=== PATIENT | male | born 1990 | race Caucasian/White ===

== ENCOUNTER 2016-10-05 11:22 | Day surgery (SDC) | payer SELFPAY ==
[~2016-10-05] VITALS: Ht 177.8 cm; Wt 78.1 kg
--- NOTE | 2016-10-12 13:48 | OR ---
ADMIT: 10/05/2016 RM/LOC: [facility] MR#: [id number] [address] [address] [place] [address] Operative/Delivery Room Report SEX: M AGE: 26 : 1990 SURGERY DATE: 10/05/2016 SURGEON: Ari Gaytan MD PREOPERATIVE DIAGNOSIS: Left knee internal derangement. POSTOPERATIVE DIAGNOSIS: Left knee lateral meniscus tear. PROCEDURE PERFORMED: Left knee arthroscopy, partial lateral meniscectomy. ANESTHESIA: General. ESTIMATED BLOOD LOSS: Minimal. FLUIDS: Per anesthetic record. COMPLICATIONS: No complications. DRAINS: None. TOURNIQUET TIME: None. CONDITION ON DISCHARGE: The patient returned to the recovery room in fair condition. INDICATIONS: The patient had a left knee injury with pain, catching, and locking. He had a positive MRI scan due to pain, desired knee scope. He understood the risks and benefits of the procedure and desired to proceed. DESCRIPTION OF PROCEDURE: The patient was taken to the OR, transferred to the OR table in the supine position. All bony prominences were well padded. He underwent general anesthesia. The left lower extremity was prepped and draped in the usual sterile fashion. Inferolateral portal made with #11 blade. Arthroscope was then elevated and inserted into the patellofemoral joint. The articular cartilage is normal. Medial and lateral gutters were clear. Medial ADMIT: 10/05/2016 RM/LOC: [facility] MR#: [id number] [id number] S[address]ON [address] [place] [address] Operative/Delivery Room Report SEX: M AGE: 26 : 1990 compartment is entered, inferomedial portal made under direct visualization with #11 blade, hooked placed through this portal. The medial compartment is normal. ACL was intact and the notch. Lateral compartment was entered. There was a large anterior horn of the lateral meniscus tear with the free parrot-beak that was flipped into the joint. The posterior horn was actually intact. I used a shaver and resected the anterior horn of the lateral meniscus tear down to stable meniscal tissue. Once this was done, arthroscopic equipment was removed from the knee. The portals were closed using 3-0 nylon. The wounds were washed, dried, dressed with sterile 4x4s, ABD, and Surendra wrap. The patient was reversed from general anesthesia, transferred to the hospital bed, and taken back to recovery room in fair condition. Air Gaytan MD/ divine JOB #: [id number] CC: Ari Gaytan, Attending Physician FAMILY PHYSICIAN, Family Physician
--- NOTE | 2016-10-12 13:48 | HP ---
ADMIT: 10/05/2016 RM/LOC: [facility] MR#: [id number] [id number] SIVA O[address]ON Shadi [address] [place] [address] Pre-OP History and Physical SEX: M AGE: 26 : 1990 Corrected: 10/05/2016 1027 pauly DATE OF SERVICE: CHIEF COMPLAINT: Left knee pain. HISTORY OF PRESENT ILLNESS: The patient is a 26-year-old white male, injured his left knee playing volleyball. He had an MRI scan positive for internal derangement. He desired surgical intervention. PAST MEDICAL HISTORY: Significant for tonsillectomy and rotator cuff repair. ALLERGIES: NO ALLERGIES. MEDICATIONS: No medications. SOCIAL HISTORY: The patient does chew tobacco. Does not regularly drink alcohol. PHYSICAL EXAMINATION: HEENT: Normocephalic and atraumatic. CARDIOVASCULAR: Regular rate and rhythm. LUNGS: Benign. ABDOMEN: Benign. NEUROLOGIC: Awake and oriented x3. MUSCULOSKELETAL: Exam shows the patient has synovial thickening in his knee. Full extension, 130 degrees of flexion. Tender over the lateral joint line. Tender a little bit over his hamstrings. Negative [place]. Negative anterior drawer. Negative posterior drawer. Medial and lateral collateral ligaments intact to stressing. Posterolateral corner is intact. He has some patellofemoral crepitus. No pain over the patellofemoral joint. DIAGNOSTIC DATA: MRI scan shows a posterior horn medial meniscus tear. ASSESSMENT AND PLAN: Left knee internal derangement. At this point in time, the best thing to do is left knee arthroscopy. The patient understands the risks and benefits of the surgical intervention and desires to proceed. Ari Gaytan MD/ divine JOB #: [id number] CC: Ari Gaytan, Attending Physician UNKNOWN, Family Physician Corrected: 10/05/2016 1027 pauly
== END 2016-10-05 17:25 | disposition home or self-care (01) ==
LOC: SSS 11:22
PROC: 0SBD4ZZ Excision of Left Knee Joint, Percutaneous Endoscopic Approach (ICD-10-PCS; principal; 2016-10-05)
DX: S83.282A Other tear of lateral meniscus, current injury, left knee, initial encounter (principal); F17.220 Nicotine dependence, chewing tobacco, uncomplicated; Z88.8 Allergy status to other drugs, medicaments and biological substances; Y93.68 Activity, volleyball (beach) (court); Z98.890 Other specified postprocedural states